=== PATIENT | female | born 1960 | race Caucasian/White ===

== ENCOUNTER 2023-02-18 14:49 | Outpatient (CLI) | payer BC ==
[2023-02-18 16:05] LABS: #Basophils 0.1 10x3/uL (0.0-0.2); #Eosinphils 0.5 10x3/uL (0.0-0.5); #Monocytes 0.7 10x3/uL (0.0-1.1); #Neutrophils 4.7 10x3/uL (1.5-8.4); %Basophils 0.6 % (0.0-2.0); %Eosinophils 5.3 % (0.0-6.0); %Lymphocytes 30.7 % (18.0-47.0); %Monocytes 8.4 % (0.0-10.0); %Neutrophils 54.7 % (40.0-75.0); Hematocrit 40.6 % (34.9-44.5); Mean Corpuscular Hemoglobin 29.3 pg (27.0-33.0); Mean Corpuscular Volume 91.4 fl (81.6-98.3); Mean Platelet Volume 9.3 fl (7.4-10.4); Platelet Count 254 10x3/uL (150-450); RBC Distribution Width 13.2 % (11.5-14.5); Red Blood Cell (RBC) Count 4.44 10x6/uL (3.90-5.03); White Blood Cell (WBC) Count 8.6 10x3/uL (3.5-10.5)
[2023-02-18 16:35] LABS: Anion Gap 17 mmol/L (10-20); BUN (Urea Nitrogen) 42 mg/dL (9.8-20.1); Calc. Creatinine Clearance 0 mL/min (70-130); Calcium 9.7 mg/dL (7.8-10.44); Carbon Dioxide 21 mmol/L (23-31); Chloride 105 mmol/L (98-107); Estimated GFR 36; Glucose 179 mg/dL (80-115); Potassium 5.7 mmol/L (3.5-5.1); Sodium 137 mmol/L (136-145)
== END 2023-02-18 14:50 | disposition home or self-care (01) ==
LOC: LABBT 14:49
PROVIDERS: ATTEND Orthopaedic Surgery
DX: Z01.818 Encounter for other preprocedural examination (principal); G56.02 Carpal tunnel syndrome, left upper limb; G56.22 Lesion of ulnar nerve, left upper limb
CPT/HCPCS: 80048; 85025

== ENCOUNTER 2023-02-23 08:40 | Day surgery (SDC) | payer BC ==
[2023-02-18 15:35] VITALS: BMI 35.6
[2023-02-23] MEDS ORDERED: PROPOFOL 20 ML ONE (10:37)
[2023-02-23] MEDS ORDERED: Lidocaine 1% PF 5 ML VIAL ONE ×2 (10:39→11:09)
[2023-02-23] MEDS ORDERED: EPINEPHrine 1 MG/ML VIAL ONE (11:00)
[2023-02-23] MEDS ORDERED: Bupivacaine 0.25% HCL 30 ML VIAL ONE (11:00)
[2023-02-23] MEDS ORDERED: Lidocaine 1% (PF) 30 ML VIAL ONE (11:00)
[2023-02-23] MEDS ORDERED: diphenhydrAMINE 50 MG/ML VIAL ONE ×2 (11:09→11:40)
[2023-02-23] MEDS ORDERED: PROPOFOL 200 MG/20 ML VIAL ONE (11:09)
[2023-02-23] MEDS ORDERED: fentaNYL PF 100 MCG/2 ML SYRINGE ONE (11:09)
[2023-02-23] MEDS ORDERED: Ondansetron PF 4 MG/2 ML Vial ONE ×2 (11:09→11:40)
[2023-02-23] MEDS ORDERED: ePHEDrine Sulfate 50 MG/10 ML VIAL ONE ×3 (11:09→11:38)
[2023-02-23] MEDS ORDERED: PHENYLEPHRINE-NS 100 MCG/ML 10 ML SYRINGE ONE ×2 (11:09→11:42)
[2023-02-23] MEDS ORDERED: CEFAZOLIN 2 GM VIAL ONE (11:10)
[2023-02-23] MEDS ORDERED: Sodium Chloride 0.9% 0 ML ONE (11:10)
[2023-02-23] MEDS ORDERED: Clindamycin/D5W 600 mg/50 ml Premix Bag ONE (11:17)
[2023-02-23] MEDS ORDERED: Labetalol HCl 100 MG/20 ML VIAL ONE (13:15)
[2023-02-23] MEDS ORDERED: fentaNYL 50 mcg/mL 1 mL Vial ONE ×2 (13:30→13:49)
== END 2023-02-23 15:21 | disposition home or self-care (01) ==
LOC: SDC 08:40
PROVIDERS: ATTEND Orthopaedic Surgery
PROC: 01N50ZZ Release Median Nerve, Open Approach (ICD-10-PCS; principal; 2023-02-23)
PROC: [UNRECOGNIZED PROCEDURE] (principal; 2023-02-23)
DX: G56.22 Lesion of ulnar nerve, left upper limb (principal); G56.02 Carpal tunnel syndrome, left upper limb; M19.041 Primary osteoarthritis, right hand; M18.12 Unilateral primary osteoarthritis of first carpometacarpal joint, left hand; E11.9 Type 2 diabetes mellitus without complications; I10 Essential (primary) hypertension; F41.9 Anxiety disorder, unspecified; Z88.0 Allergy status to penicillin; Z88.8 Allergy status to other drugs, medicaments and biological substances; Z79.84 Long term (current) use of oral hypoglycemic drugs; Z79.899 Other long term (current) drug therapy
CPT/HCPCS: 36416; J0171; J1200; J2001; J2405; J2704; J3010; J3490; S0020

== ENCOUNTER 2024-12-07 14:11 | Outpatient (CLI) | payer BC | END 2024-12-07 14:12 | disposition home or self-care (01) | LOC: SCSMRI 14:11 | PROVIDERS: ATTEND Podiatrist Foot & Ankle Surgery | DX: S86.312A Strain of muscle(s) and tendon(s) of peroneal muscle group at lower leg level, left leg, initial encounter (principal); M76.72 Peroneal tendinitis, left leg; M79.672 Pain in left foot ==

== ENCOUNTER 2025-01-03 16:11 | Inpatient (IN) | payer BC, MEDICARE ==
[2025-01-03 17:05] LABS: Bacteria/HPF None Seen HPF (None Seen); CAUTI Indications for Culture Dysuria,urgency,freq; Glucose, Urine (Dipstick) Greater than 1000 mg/dL (Negative); Leukocyte Negative Leu/uL (Negative); Protein, Urine (Dipstick) 10 mg/dL (Neg-Trace); RBC/HPF 0-3 HPF (0-3); Specific Gravity, Urine 1.022 (1.002-1.036); WBC/HPF 0-3 HPF (0-3)
[2025-01-03 17:07] LABS: Urine Culture Reflex No No
[2025-01-03 17:20] LABS: #Basophils 0.06 10x3/uL (0.0-0.2); #Eosinophils 0.04 10x3/uL (0.0-0.7); #Monocytes 1.36 10x3/uL (0.11-0.59); #Neutrophils 8.69 10x3/uL (1.40-6.50); %Basophils 0.5 % (0.0-1.0); %Eosinophils 0.3 % (0.0-10.0); %Lymphocytes 13.9 % (21.0-51.0); %Monocytes 11.5 % (0.0-10.0); %Neutrophils 73.5 % (42.0-75.0); Hematocrit 39.5 % (36.0-47.0); Hemoglobin 13.3 g/dL (12.0-16.0); Mean Corpuscular Hemoglobin 29.2 pg (27.0-31.0); Mean Corpuscular Volume 86.8 fL (78.0-98.0); Platelet Count 182 10x3/uL (130-400); Red Blood Cell (RBC) Count 4.55 mill/uL (4.20-5.40); White Blood Cell (WBC) Count 11.83 10x3/uL (4.8-10.8)
[2025-01-03] MEDS ORDERED: Ondansetron PF 4 MG/2 ML Vial ONE ×2 (17:30→18:44)
[2025-01-03 17:44] LABS: ALT (SGPT) 13 U/L (Less than 34); AST (SGOT) 21 U/L (11-34); Albumin 3.6 g/dL (3.1-4.5); Alkaline Phosphatase 95 U/L (40-110); Anion Gap 16 mmol/L (10-20); BUN (Urea Nitrogen) 23 mg/dL (9.8-20.1); Bilirubin, Total 0.7 mg/dL (0.3-1.2); Calc. Creatinine Clearance 0 mL/min (70-130); Calcium 9.5 mg/dL (7.8-10.44); Carbon Dioxide 19 mmol/L (23-31); Chloride 103 mmol/L (98-107); Globulin 3.7 g/dL (2.4-3.5); Glucose 192 mg/dL (80-115); Potassium 4.0 mmol/L (3.5-5.1); Sodium 134 mmol/L (136-145)
[2025-01-03] MEDS ORDERED: Cefepime 2 GM VIAL ONE (18:21)
[2025-01-03 18:26] LABS: INR-International Normal Ratio 1.1; Prothrombin Time 13.8 sec (12.0-14.7)
[2025-01-03 18:27] LABS: PTT 36.2 sec (22.9-36.1)
[2025-01-03] MEDS ORDERED: Ondansetron PF 4 MG/2 ML Vial IVP PRN (19:27)
[2025-01-03] MEDS ORDERED: Pharmacy to Dose 1 EACH VANCOMYCIN IVPB PRN ×2 (19:29→20:13)
[2025-01-03] MEDS ORDERED: Dextrose 50% Abboject 50 ML SYRINGE SLOW IVP PRN (19:35)
[2025-01-03] MEDS ORDERED: Glucagon 1 MG/ML KIT IM PRN (19:35)
[2025-01-03] MEDS ORDERED: diphenhydrAMINE 50 MG/ML VIAL ONE (19:47)
[2025-01-03 22:00] VITALS: BMI 35.8
[2025-01-03] MEDS: Clindamycin/D5W 900 MG in Premix 1 BAG IVPB SCH (22:01)
[2025-01-03] MEDS: Vancomycin (BATCH) 2.5 GM in Premix 1 BAG IVPB SCH (22:01)
[2025-01-04] MEDS: HYDROcodone/Acetaminophen 7.5/325 mg Tablet PO PRN (01:18)
[2025-01-04] MEDS: diphenhydrAMINE 25 MG CAP PO SCH (03:37)
[2025-01-04 05:35] LABS: #Basophils 0.06 10x3/uL (0.0-0.2); #Eosinophils 0.16 10x3/uL (0.0-0.7); #Monocytes 1.41 10x3/uL (0.11-0.59); #Neutrophils 6.39 10x3/uL (1.40-6.50); %Basophils 0.6 % (0.0-1.0); %Eosinophils 1.6 % (0.0-10.0); %Lymphocytes 19.3 % (21.0-51.0); %Monocytes 14.2 % (0.0-10.0); %Neutrophils 64.1 % (42.0-75.0); Hematocrit 36.6 % (36.0-47.0); Hemoglobin 11.4 g/dL (12.0-16.0); Mean Corpuscular Hemoglobin 28.3 pg (27.0-31.0); Mean Corpuscular Volume 90.8 fL (78.0-98.0); Platelet Count 166 10x3/uL (130-400); Red Blood Cell (RBC) Count 4.03 mill/uL (4.20-5.40); White Blood Cell (WBC) Count 9.96 10x3/uL (4.8-10.8)
[2025-01-04 05:45] LABS: Vancomycin, Random 20.5 ug/mL (See Comment)
[2025-01-04 05:47] LABS: Anion Gap 12 mmol/L (10-20); BUN (Urea Nitrogen) 22 mg/dL (9.8-20.1); Calc. Creatinine Clearance 88 mL/min (70-130); Calcium 8.5 mg/dL (7.8-10.44); Carbon Dioxide 22 mmol/L (23-31); Chloride 104 mmol/L (98-107); Glucose 140 mg/dL (80-115); Potassium 3.7 mmol/L (3.5-5.1); Sodium 134 mmol/L (136-145)
[2025-01-04] MEDS: Enoxaparin 40 MG (0.4 mL) SYRINGE SC SCH (08:33)
[2025-01-04] MEDS: Gabapentin 300 MG CAP PO SCH (08:34)
[2025-01-04] MEDS: Rosuvastatin 20 MG TAB PO SCH (08:34)
[2025-01-04] MEDS: Citalopram 20 MG TAB PO SCH (08:34)
[2025-01-04] MEDS: Losartan 25 MG TAB PO SCH (08:34)
[2025-01-04] MEDS: Insulin Glargine 30 UNITS/0.3 ML VIAL SC SCH (08:39)
[2025-01-04] MEDS: diphenhydrAMINE 25 MG CAP PO PRN (11:47)
[2025-01-04] MEDS ORDERED: Vancomycin 1.5 GM / NS 500 ML VIAL-2-BAG IVPB SCH (20:00)
[2025-01-04] MEDS: Vancomycin 1.25 GM / NS 250 ML VIAL-2-BAG IVPB SCH (20:16)
[2025-01-05] MEDS: Acetaminophen 325 MG TAB PO PRN (02:11)
[2025-01-05 04:36] LABS: #Basophils 0.06 10x3/uL (0.0-0.2); #Eosinophils 0.25 10x3/uL (0.0-0.7); #Monocytes 1.21 10x3/uL (0.11-0.59); #Neutrophils 6.28 10x3/uL (1.40-6.50); %Basophils 0.6 % (0.0-1.0); %Eosinophils 2.6 % (0.0-10.0); %Lymphocytes 17.8 % (21.0-51.0); %Monocytes 12.7 % (0.0-10.0); %Neutrophils 66.0 % (42.0-75.0); Hematocrit 32.2 % (36.0-47.0); Hemoglobin 10.2 g/dL (12.0-16.0); Mean Corpuscular Hemoglobin 28.3 pg (27.0-31.0); Mean Corpuscular Volume 89.2 fL (78.0-98.0); Platelet Count 175 10x3/uL (130-400); Red Blood Cell (RBC) Count 3.61 mill/uL (4.20-5.40); White Blood Cell (WBC) Count 9.53 10x3/uL (4.8-10.8)
[2025-01-05 04:52] LABS: Anion Gap 13 mmol/L (10-20); BUN (Urea Nitrogen) 25 mg/dL (9.8-20.1); Calc. Creatinine Clearance 78 mL/min (70-130); Calcium 8.2 mg/dL (7.8-10.44); Carbon Dioxide 20 mmol/L (23-31); Chloride 102 mmol/L (98-107); Glucose 141 mg/dL (80-115); Potassium 3.8 mmol/L (3.5-5.1); Sodium 131 mmol/L (136-145)
[2025-01-06] MEDS: cefTRIAXone\\ROCEPHIN 2 GM in Sodium Chloride 0.9% 100 ML IVPB SCH (05:02)
[2025-01-06 06:38] LABS: #Basophils 0.05 10x3/uL (0.0-0.2); #Eosinophils 0.26 10x3/uL (0.0-0.7); #Monocytes 0.93 10x3/uL (0.11-0.59); #Neutrophils 6.37 10x3/uL (1.40-6.50); %Basophils 0.6 % (0.0-1.0); %Eosinophils 3.0 % (0.0-10.0); %Lymphocytes 11.8 % (21.0-51.0); %Monocytes 10.7 % (0.0-10.0); %Neutrophils 73.6 % (42.0-75.0); Hematocrit 33.1 % (36.0-47.0); Hemoglobin 10.7 g/dL (12.0-16.0); Mean Corpuscular Hemoglobin 28.8 pg (27.0-31.0); Mean Corpuscular Volume 89.0 fL (78.0-98.0); Platelet Count 198 10x3/uL (130-400); Red Blood Cell (RBC) Count 3.72 mill/uL (4.20-5.40); White Blood Cell (WBC) Count 8.66 10x3/uL (4.8-10.8)
[2025-01-06 06:56] LABS: Anion Gap 14 mmol/L (10-20); BUN (Urea Nitrogen) 23 mg/dL (9.8-20.1); Calc. Creatinine Clearance 84 mL/min (70-130); Calcium 8.6 mg/dL (7.8-10.44); Carbon Dioxide 24 mmol/L (23-31); Chloride 103 mmol/L (98-107); Glucose 122 mg/dL (80-115); Potassium 4.4 mmol/L (3.5-5.1); Sodium 137 mmol/L (136-145)
[2025-01-06 07:02] LABS: Vancomycin, Random 25.5 ug/mL (See Comment)
[2025-01-06] MEDS ORDERED: Vancomycin 1 GM in Premix 1 BAG IVPB SCH (20:00)
[2025-01-07] MEDS: Sulfameth/Trimethoprim DS 800-160mg TAB PO SCH (05:28)
[2025-01-07] MEDS: Ondansetron PF 4 MG/2 ML Vial IVP PRN (10:45)
[2025-01-07] MEDS: LevoFLOXacin 750 mg/D5W 750 MG in Premix 1 BAG IVPB SCH (11:57)
[2025-01-08 05:25] LABS: #Basophils 0.04 10x3/uL (0.0-0.2); #Eosinophils 0.56 10x3/uL (0.0-0.7); #Monocytes 0.63 10x3/uL (0.11-0.59); #Neutrophils 7.39 10x3/uL (1.40-6.50); %Basophils 0.4 % (0.0-1.0); %Eosinophils 6.2 % (0.0-10.0); %Lymphocytes 4.6 % (21.0-51.0); %Monocytes 6.9 % (0.0-10.0); %Neutrophils 81.3 % (42.0-75.0); Hematocrit 30.9 % (36.0-47.0); Hemoglobin 10.1 g/dL (12.0-16.0); Mean Corpuscular Hemoglobin 28.9 pg (27.0-31.0); Mean Corpuscular Volume 88.5 fL (78.0-98.0); Platelet Count 241 10x3/uL (130-400); Red Blood Cell (RBC) Count 3.49 mill/uL (4.20-5.40); White Blood Cell (WBC) Count 9.09 10x3/uL (4.8-10.8)
[2025-01-08 05:40] LABS: Anion Gap 13 mmol/L (10-20); BUN (Urea Nitrogen) 21 mg/dL (9.8-20.1); Calc. Creatinine Clearance 73 mL/min (70-130); Calcium 8.3 mg/dL (7.8-10.44); Carbon Dioxide 26 mmol/L (23-31); Chloride 100 mmol/L (98-107); Glucose 97 mg/dL (80-115); Potassium 4.0 mmol/L (3.5-5.1); Sodium 135 mmol/L (136-145)
[2025-01-09 04:31] LABS: #Basophils 0.03 10x3/uL (0.0-0.2); #Eosinophils 0.68 10x3/uL (0.0-0.7); #Monocytes 0.77 10x3/uL (0.11-0.59); #Neutrophils 5.27 10x3/uL (1.40-6.50); %Basophils 0.4 % (0.0-1.0); %Eosinophils 9.0 % (0.0-10.0); %Lymphocytes 10.1 % (21.0-51.0); %Monocytes 10.2 % (0.0-10.0); %Neutrophils 69.8 % (42.0-75.0); Hematocrit 32.4 % (36.0-47.0); Hemoglobin 10.7 g/dL (12.0-16.0); Mean Corpuscular Hemoglobin 29.0 pg (27.0-31.0); Mean Corpuscular Volume 87.8 fL (78.0-98.0); Platelet Count 260 10x3/uL (130-400); Red Blood Cell (RBC) Count 3.69 mill/uL (4.20-5.40); White Blood Cell (WBC) Count 7.55 10x3/uL (4.8-10.8)
[2025-01-09 04:47] LABS: Anion Gap 12 mmol/L (10-20); BUN (Urea Nitrogen) 19 mg/dL (9.8-20.1); Calc. Creatinine Clearance 75 mL/min (70-130); Calcium 8.9 mg/dL (7.8-10.44); Carbon Dioxide 25 mmol/L (23-31); Chloride 107 mmol/L (98-107); Glucose 91 mg/dL (80-115); Potassium 4.3 mmol/L (3.5-5.1); Sodium 140 mmol/L (136-145)
[2025-01-09 14:57] VITALS: BP 130/57; TEMP 98
== END 2025-01-09 15:38 | disposition home or self-care (01) | DRG 638 ==
LOC: ERS 16:11 → T4-A 19:27
PROVIDERS: ADMIT Internal Medicine; ATTEND Student in an Organized Health Care Education/Training Program
PROC: 3E0234Z Introduction of Serum, Toxoid and Vaccine into Muscle, Percutaneous Approach (ICD-10-PCS; principal; 2025-01-06)
DX: E11.628 Type 2 diabetes mellitus with other skin complications (principal); L03.115 Cellulitis of right lower limb; N17.9 Acute kidney failure, unspecified; E78.5 Hyperlipidemia, unspecified; Z98.890 Other specified postprocedural states; Z88.0 Allergy status to penicillin; Z88.8 Allergy status to other drugs, medicaments and biological substances; E11.40 Type 2 diabetes mellitus with diabetic neuropathy, unspecified; I10 Essential (primary) hypertension; Z79.899 Other long term (current) drug therapy; Z79.4 Long term (current) use of insulin
CPT/HCPCS: 36415; 80048; 80053; 80202; 81001; 83605; 85025; 85610; 85730; 86141; 87040; 87081; 93005; 94760; 96365; 96367; 96375; 96376; J0692; J0696; J1200; J1650; J1815; J1956; J2270; J2272; J2405; J3373; J3490; J7050; J7120

== ENCOUNTER 2025-02-04 13:54 | Outpatient (CLI) | payer BC, MEDICARE, OTHER ==
[2025-02-04 14:55] LABS: #Basophils 0.04 10x3/uL (0.0-0.2); #Eosinophils 0.15 10x3/uL (0.0-0.7); #Monocytes 0.94 10x3/uL (0.11-0.59); #Neutrophils 9.44 10x3/uL (1.40-6.50); %Basophils 0.3 % (0.0-1.0); %Eosinophils 1.3 % (0.0-10.0); %Lymphocytes 11.4 % (21.0-51.0); %Monocytes 7.9 % (0.0-10.0); %Neutrophils 78.8 % (42.0-75.0); Hematocrit 39.8 % (36.0-47.0); Hemoglobin 12.6 g/dL (12.0-16.0); Mean Corpuscular Hemoglobin 27.8 pg (27.0-31.0); Mean Corpuscular Volume 87.9 fL (78.0-98.0); Platelet Count 194 10x3/uL (130-400); Red Blood Cell (RBC) Count 4.53 mill/uL (4.20-5.40); White Blood Cell (WBC) Count 11.96 10x3/uL (4.8-10.8)
[2025-02-04 15:23] LABS: Anion Gap 16 mmol/L (10-20); BUN (Urea Nitrogen) 30 mg/dL (9.8-20.1); Calc. Creatinine Clearance 0 mL/min (70-130); Calcium 9.6 mg/dL (7.8-10.44); Carbon Dioxide 24 mmol/L (23-31); Chloride 103 mmol/L (98-107); Glucose 131 mg/dL (80-115); Potassium 5.3 mmol/L (3.5-5.1); Sodium 138 mmol/L (136-145)
== END 2025-02-04 13:55 | disposition home or self-care (01) ==
LOC: LABBT 13:54
PROVIDERS: ATTEND Orthopaedic Surgery
DX: Z01.818 Encounter for other preprocedural examination (principal); S46.011A Strain of muscle(s) and tendon(s) of the rotator cuff of right shoulder, initial encounter; S46.211A Strain of muscle, fascia and tendon of other parts of biceps, right arm, initial encounter
CPT/HCPCS: 80048; 85025